=== PATIENT | female | born 2000 | race Caucasian/White ===

== ENCOUNTER 2020-06-29 10:50 | Inpatient (IN) | payer MEDICAID, SELFPAY ==
[2020-06-29] VITALS (58 sets, daily range): BP systolic 0–148; BP diastolic 0–102; PULSE 69–118; RESP 16–17; TEMP 36.3–37; O2SAT 54–100; BMI 24.5
[2020-06-29 10:35] LABS: Actim Prom Positive
[2020-06-29 12:15] LABS: Basophils % 0.4 %; Eosinophils % 0.4 %; Hematocrit 35.3 % (37.0-47.0); Hemoglobin 11.9 g/dL (11.5-15.3); Lymphocytes # 1.4 10^3/uL (0.8-4.8); Mean Corpuscular HGB Conc 33.7 g/dL (30.0-36.0); Mean Corpuscular Hemoglobin 32.1 pg (28.0-34.0); Mean Corpuscular Volume 95.1 fL (81-99); Mean Platelet Volume 10.3 fL (7.4-10.4); Monocytes # 0.4 10^3/uL (0.2-0.9); Monocytes % 4.4 %; Neutrophils # 6.61 10^3/uL (1.8-7.7); Neutrophils % 77.7 %; Nucleated Red Blood Cells % 0 %; Platelet Count 152 10^3/cmm (130-400); Red Blood Count 3.71 10^6/uL (4.1-5.3); Red Cell Distribution Width 13.2 % (12.1-15.1); White Blood Count 8.5 10^3/uL (4.0-10.0)
[2020-06-29] MEDS: miSOPROStol 100 mcg tablet 25 MCG VAGINAL (12:36)
[2020-06-29] MEDS: lactated ringers 1,000 ML 999 ML IV (20:06)
--- NOTE | 2020-06-29 20:45 | PC.NURSE ---
Margarita Pillai CLINICAL REHABILITATION AIDE notified by phone, pt. ready for epidural at this time.
--- NOTE | 2020-06-29 21:30 | ANES.PROC ---
Anesthesia Procedures Procedure/Date: 06/29/20 Epidural: Time Out Performed: Yes Consents Signed: Procedure Consent Consent: requested by attending/covering physician, from patient, risks and benefits reviewed and patient agrees to proceed Lumbar Level: L3-L4 Epidural position: sitting Epidural procedure: sterile prep of area, 1% lidocaine to numb the area, 18 g needle, negative for paresthesia passed, neg for paresthesia, test dose given, 1.5% xylocaine 1:200k epi, 0.2% Ropivacaine bolus ml, placed PCEA, no systemic response, sterile dressing applied and 0.2% Ropiavacaine @ mls/hr Additional Comments: [place] at 5cm. cath placed 2 cm into epid space. test dose 1.5% Lido with 1:200 K epi 3cc neg. Ropiv 0.2% 4 cc and fent 100 mcg bolus.
--- NOTE | 2020-06-29 21:35 | P.ANESASSM_ITS ---
Pre-Anesthetic Assessment Pre-Anesthetic Assessment: Height/Weight: Height 1.55 m Weight 58.967 kg Temp Pulse Resp BP Pulse Ox 98.6 F 75 16 133/70 98 06/29/20 21:29 06/29/20 21:32 06/29/20 13:53 06/29/20 21:32 06/29/20 21:32 Preop Diagnosis: Labor pain Proposed Procedure: BRAD Was Beta Susan taken within 24 hours: N/A Last Intake: 17:00 Social: Social History: No alcohol and No tobacco Exam: Pre-Anes Outpt Exam: alert, oriented x 3, clear to auscultation bilaterally and regular rate & rhythm Airway: Submandibular: WNL Cervical ROM: WNL MP: 2 Dentition: Full History/ROS: No significant history except as noted and No significant complaints Pulmonary: Pulmonary: None reported CV/HEM: CV/HEM: None reported : : None reported Hepatic: Hepatic: None reported GI: GI: None reported Metabolic: Metabolic: None reported Musc/skel: Musc/skel: None reported Neuropsych: Neuropsych: None reported Anesthetic Plan: ASA status: 2 Anesthesia: Regional (specify below) Risk of > 500 ml blood loss (7ml/kg in children): No Meds/Allergies Current Medications: Current Medications Generic Name Dose Route Start Last Admin Trade Name Freq PRN Reason Stop Dose Admin Lactated Ringer's 1,000 mls @ 999 m ls/hr 06/29/20 19:42 06/29/20 20:06 Lactated Ringers IV 999 mls/hr .Q1H1M PRN Administration See label comment s PFSH Anesthesia Female Reproductive History: : 2 Data Anesthesia CBC & Chem 7: 06/29/20 11:50 Other Labs: Laboratory Results - last 48 hr 06/29/20 06/29/20 10:15 11:50 WBC 8.5 RBC 3.71 L Hgb 11.9 Hct 35.3 L MCV 95.1 MCH 32.1 MCHC 33.7 RDW 13.2 Plt Count 152 MPV 10.3 Neut % (Auto) 77.7 Lymph % (Auto) 16.0 [place] % (Auto) 4.4 Eos % (Auto) 0.4 Baso % (Auto) 0.4 Neut # (Auto) 6.61 Lymph # (Auto) 1.4 [place] # (Auto) 0.4 Eos # (Auto) 0.0 Baso # (Auto) 0.0 Nucleated RBC % (auto) 0 Nucleated RBCs # 0.0 Insulin-like GF I Positive Cardiac Studies: No Data to Display
[2020-06-29] MEDS: dextrose 5%-lactated ringers 1,000 ML 125 ML IV (23:21)
[2020-06-30] VITALS (30 sets, daily range): BP systolic 0–166; BP diastolic 0–94; PULSE 67–105; RESP 16; TEMP 36.3–36.6; O2SAT 96–99
--- NOTE | 2020-06-30 02:11 | P.PCNOB_ITS ---
Delivery Note: Date of delivery: June 30, 2020 Pre-Delivery Course: The patient is a 2 para 1 at 39 weeks estimated gestational age who presented to my office yesterday complaining of possible rupture membranes. In the office she was found to be nitrazine positive. She went to the OB floor where she was found to be actim PROM positive. Cytotec x1 was placed per vagina. She progressed to complete without difficulty. An epidural was placed. Amniotomy was performed for the residual forebag. Her has been unremarkable to that point. Her GBS status is negative. Her Covid status is unknown. Her glucose screen was within normal limits. Her blood type is B+. The remainder of her labs were also within normal limits. She had consistent care. There are no concerns during her . Delivery: DELIVERY: The patient progressed to complete without difficulty. She delivered a male with a weight of 6 pounds 7 ounces with Apgars of 8, 8. The baby was delivered from the SISSY position. The baby's mouth and nose were suctioned at the site of the perineum. The baby was then completely delivered and placed on the mother's abdomen. The cord was then clamped and cut. There was a nuchal cord x2 which was easily reduced as the baby was delivered.. There was no meconium. The placenta and 3 vessel cord were delivered intact shortly thereafter. The perineum and vaginal vault were carefully examined. No lacerations were noted. Both the mother and the baby were in stable condition. There was 100 mL of blood loss Post-Delivery Status: Stable A&P Assessment and plan (1) 39 weeks gestation of : I anticipate routine care. If she continues to do well, she will build to be discharged home with the baby in about 24 hours. Status: Acute (2) Spontaneous rupture of membranes: Status: Acute Coding Level of Care Code Acute Granite Polisher for Chg Fwd Diagnoses 39 weeks gestation of Z3A.39 Spontaneous rupture of membranes
[2020-06-30] MEDS: lanolin oint 7 gm 1 APPLIC TOPICAL (04:44)
[2020-06-30] MEDS: benzocaine-menthol 78 gm Canister 1 SPRAY TOPICAL (04:44)
[2020-06-30] MEDS: HYDROcodone-acetaminophen 5-325 mg Tablet PO ×3 (04:44→21:31)
--- NOTE | 2020-06-30 08:55 | ANE.PACU2 ---
Inpatient post-anesthesia follow up: Airway intact: Yes Vital signs: Temperature 97.8 F Pulse Rate 89 Respiratory Rate 16 Blood Pressure 116/72 Pulse Oximetry 98 Oxygen Delivery Me thod Room Air Oxygen Flow Rate Fraction of Inspir ed Oxygen Hydration adequate: Yes Nausea and vomiting: No Pain level: 1 Mental status: Baseline Additional Comments: no Lower extremity numbness/weakness, up and walking, no signs of infection at neuraxial site, no headaches
[2020-06-30] MEDS: prenatal vitamin Capsule 1 CAP PO (09:09)
[2020-06-30] MEDS: docusate sodium 100 mg Capsule PO (09:09)
[2020-06-30] MEDS: ibuprofen 800 mg tablet PO ×3 (09:09→20:46)
--- NOTE | 2020-06-30 10:06 | PC.NURSE ---
Patient pressed called light and is noted to be on floor, holding baby, dry heaving, and stating she was cramping so badly she couldn't breathe. Baby was placed in crib and mom was helped back to bed. Fundal rubbed performed and patient is noted to have scant bleeding but be above umlbilicus and causing patient an extreme amount of pain. Patient screaming during fundal rub. Gentle SVE completed by Jeffrey Alejandra and felt clots in vagina but unable to express. Phone call placed to Dr. Owusu and he states to give patient 5mg morphine IV push now and he will be here in 15 minutes to assess patient.
[2020-06-30] MEDS: morphine 4 mg/mL SDV 1 mL 5 MG IVP (10:08)
[2020-06-30 10:41] LABS: Hematocrit 34.2 % (37.0-47.0); Hemoglobin 11.7 g/dL (11.5-15.3); Mean Corpuscular HGB Conc 34.2 g/dL (30.0-36.0); Mean Corpuscular Volume 93.4 fL (81-99); Mean Platelet Volume 9.7 fL (7.4-10.4); Platelet Count 142 10^3/cmm (130-400); Red Blood Count 3.66 10^6/uL (4.1-5.3); White Blood Count 12.1 10^3/uL (4.0-10.0)
[2020-07-01 04:51] VITALS: BP 109/69; PULSE 64; RESP 16; O2SAT 97
[2020-07-01] MEDS: HYDROcodone-acetaminophen 5-325 mg Tablet PO (05:51)
--- NOTE | 2020-07-01 07:19 | P.DS_ITS ---
Discharge Providers VOICE NETWORK ENGINEER Date of Admission: 06/29/20 10:50 Date of Discharge: 07/01/20 Attending Provider at Admission: Leonel Owusu MD Attending Provider at Discharge: Leonel Owusu MD Primary Care Provider: Leonel Owusu Diagnoses at Discharge Discharge Diagnosis (1) 39 weeks gestation of : Status: Acute (2) Spontaneous rupture of membranes: Status: Acute Reason for Visit Reason for Visit: VAGINAL DISCHARGE Hospital Course Hospital Course: The patient is a 20-year-old 2 female who presented to the hospital at 39 weeks estimated gestational age with spontaneous rupture membranes. For full details regarding hospital stay prior to her delivery please see delivery note. Her induction was unremarkable. She had an unremarkable delivery of a healthy-appearing male . Her course is overall been unremarkable as well. She is breast-fed well. Her bleeding has been minimal. Her pain has in general been well controlled. She did have 1 episode yesterday when she had severe pain that occurred while she was breast- feeding. Her uterus was noted be boggy at that time. She was given morphine, and her pain improved. She had no other episodes since that time. Information Peripartum Data: Infant Delivery Method: Vaginal Physical Exam Narrative: EXAM NARRATIVE: The patient is alert. She appears comfortable. Her heart has a regular rate and rhythm with no murmurs appreciated. Lungs are clear to auscultation bilaterally. Her fundus is firm and below the umbilicus. Urinary Catheter Management^: Bejarano: Cath Placed During This Visit: yes Urinary Catheter Date of Insertion: 06/29/20 Urinary Catheter Time of Insertion: 21:45 Discharge Data Data Completed and Pending: Pending at discharge Category Date Time Status PTC COVID [Gray virus Lab Test PTC ] Routine Lab 06/29/20 11:55 Received Labs from last 24 hours 06/30/20 10:20 WBC 12.1 H RBC 3.66 L Hgb 11.7 Hct 34.2 L MCV 93.4 MCH 32.0 MCHC 34.2 RDW 13.0 Plt Count 142 MPV 9.7 Vitals: Last Vital Signs Temp 97.4 F L 06/30/20 15:48 Pulse 64 07/01/20 04:51 Resp 16 07/01/20 04:51 BP 109/69 07/01/20 04:51 Pulse Ox 97 07/01/20 04:51 Discharge Plan Discharge Patient Disposition: Home Condition: Stable Prescriptions: New ibuprofen 800 mg Tablet 800 mg PO TID Qty: 45 RF: 0 hydrocodone-acetaminophen 5-325 mg Tablet 1 tab PO Q6H PRN (Reason: Moderate To Severe Pain) Qty: 10 RF: 0 Continued Vitamin 27 mg iron- 800 mcg Tablet 1 tab PO DAILY RF: 0 Discontinued ferrous sulfate [iron] 325 mg (65 mg iron) Tablet 325 mg PO DAILY RF: 0 Discharge Orders: Discharge Order (Routine); Ordered 07/01/20 Ordered By: Leonel Owusu Referrals: Leonel Owusu MD [Physician] - 6 Weeks Discharge Diet: Usual diet Discharge Activity: Limit activity as instructed Patient Instructions: Bleeding (DC), OB Discharge Report, OB Food/Drug Interaction Guide, OB Home Care, OB Proud Parent Packet, OB Vaginal Deliveries Discharge Attestations VOICE NETWORK ENGINEER Time Spent in Discharge Care*: less than 30 min Coding Level of Care Code Acute Ramp Service Agent for Chg Fwd Diagnoses 39 weeks gestation of Z3A.39 Spontaneous rupture of membranes
[2020-07-01] MEDS: prenatal vitamin Capsule 1 CAP PO (09:16)
[2020-07-01] MEDS: ibuprofen 800 mg tablet PO (09:16)
[2020-07-01] MEDS: docusate sodium 100 mg Capsule PO (09:17)
[2020-07-01 09:45] VITALS: BP 114/70; PULSE 80; RESP 16; TEMP 36.7; O2SAT 97
[2020-07-01 11:32] LABS: Coronavirus Lab Test PTC Negative
== END 2020-07-01 09:50 | disposition home or self-care (01) | DRG 807 ==
LOC: OPOB 12:12 → OBGYN 12:12
PROVIDERS: Admitting Provider Family Medicine; Family Provider Family Medicine; PCP Family Medicine; Visit Provider Family Medicine
DX: O42.02 Full-term premature rupture of membranes, onset of labor within 24 hours of rupture (principal); Z37.0 Single live birth; Z3A.39 39 weeks gestation of pregnancy; O69.81X0 Labor and delivery complicated by cord around neck, without compression, not applicable or unspecified
CPT/HCPCS: 12345; 36415; 51702; 59025; 59409; 83986; 84112; 85025; 85027; 87635; 96374; 96375; 98960; 99211; J2270; J2795; J3010

== ENCOUNTER 2022-02-17 09:54 | Outpatient (CLI) | payer MEDICAID, SELFPAY ==
--- NOTE | 2022-02-17 | US_ITS ---
WS: [id number] Exam: US transvaginal [id number] Date/Time of Exam: 02/17/2022 12:00 AM Reason For Exam: OVARIAN CYST The uterus and ovaries appear normal. The uterus measures 7.9 x 5.4 x 4.4 cm. The left ovary measures 2.15 x 2.3 x 1.6 cm. The right ovary measures 3.26 x 2.55 x 3.3 cm. No adnexal mass noted. Trace doretha unt of physiologic free fluid in the pelvis. Endometrial thickness is 3.3 mm. The uterus is bicornuat e. US/US transvaginal [id number] IMPRESSION: 1. Bicornuate uterus. Normal-appearing ovaries. 2. No adnexal mass or significant free fluid collection in the pelvis.
== END 2022-02-17 09:55 | disposition home or self-care (01) ==
LOC: RADOUTREAD 09:55
PROVIDERS: PCP Family Medicine; Visit Provider Family Medicine
DX: N83.209 Unspecified ovarian cyst, unspecified side (principal)
CPT/HCPCS: 76830

== ENCOUNTER 2023-10-06 17:21 | Outpatient (CLI) | payer MEDICAID, SELFPAY ==
[2023-10-06 17:50] VITALS: RESP 18; BMI 24.2
[2023-10-06] MEDS: lactated ringers 1,000 ML 999 ML IV (18:04)
[2023-10-06] MEDS: ondansetron 2 mg/ML SDV 2 mL 4 MG IVP (18:04)
--- NOTE | 2023-10-06 18:58 | PC.NURSE ---
pt reports feeling better at this time. pt up to bathroom
[2023-10-06 19:42] VITALS: BP 98/50; PULSE 92; RESP 16; TEMP 36.9
== END 2023-10-06 19:42 | disposition home or self-care (01) ==
LOC: OPOB 17:22 → OBGYN 19:31
PROVIDERS: PCP Family Medicine; Visit Provider Family Medicine
DX: O21.9 Vomiting of pregnancy, unspecified (principal); Z3A.00 Weeks of gestation of pregnancy not specified
CPT/HCPCS: 36415; 96374; 99211; J2405; J7120

== ENCOUNTER 2023-12-07 16:19 | Outpatient (CLI) | payer MEDICAID, SELFPAY ==
[2023-12-07 16:30] VITALS: BMI 26.7
[2023-12-07 16:31] VITALS: BP 113/64; PULSE 72
[2023-12-07 16:52] VITALS: BP 110/55; PULSE 72
== END 2023-12-07 17:05 | disposition home or self-care (01) ==
LOC: OPOB 16:25 → OBGYN 16:26
PROVIDERS: PCP Family Medicine; Visit Provider Family Medicine
DX: O26.899 Other specified pregnancy related conditions, unspecified trimester (principal); Z3A.00 Weeks of gestation of pregnancy not specified; R10.9 Unspecified abdominal pain
CPT/HCPCS: 59025; 99211

== ENCOUNTER 2024-02-11 02:03 | Inpatient (IN) | payer MEDICAID, SELFPAY ==
[2024-02-10] VITALS (46 sets, daily range): BP systolic 94–154; BP diastolic 52–82; PULSE 58–95; RESP 18; TEMP 36.2; O2SAT 90–99; BMI 27.3
[2024-02-10] MEDS: miSOPROStol 100 mcg tablet 25 MCG SUBLINGUAL ×2 (17:22→21:52)
[2024-02-10 17:37] LABS: Basophils % 0.4 %; Eosinophils % 0.5 %; Hematocrit 34.4 % (36-47); Lymphocytes # 1.6 10^3/uL (0.8-4.8); Lymphocytes % 19.4 %; Mean Corpuscular Hemoglobin 31.7 pg (27-33); Mean Corpuscular Volume 93.2 fl (85-98); Mean Platelet Volume 10.3 fL (7.4-10.4); Monocytes # 0.5 10^3/uL (0.2-0.9); Monocytes % 5.8 %; Neutrophils # 6.07 10^3/uL (1.8-7.7); Neutrophils % 73.2 %; Nucleated Red Blood Cells % 0 %; Platelet Count 127 10^3/cmm (157-399); Red Blood Count 3.69 10^6/uL (3.85-5.65); Red Cell Distribution Width 13.7 % (12.1-15.1); White Blood Count 8.29 10^3/uL (3.29-11.43)
[2024-02-10] MEDS: lactated ringers 1,000 ML 999 ML IV (19:34)
[2024-02-10] MEDS: dextrose 5%-lactated ringers 1,000 ML 125 ML IV (20:30)
--- NOTE | 2024-02-10 20:30 | P.ANESASSM_ITS ---
Pre-Anesthetic Assessment Height/Weight: Height 1.52 m Weight 63.503 kg Pulse Resp BP Pulse Ox O2 Del Method 67 18 113/63 99 Room Air 02/10/24 20:43 02/10/24 17:30 02/10/24 20:43 02/10/24 20:42 02/10/24 17:40 Preop Diagnosis: IUP labor epidural Familial anesthetic complications: none Was Beta Susan taken within 24 hours: N/A Was Clonidine taken within 24 hours: N/A Social No alcohol and No tobacco Exam alert and oriented x 3 Airway Submandibular: within normal limits Cervical ROM: within normal limits Mallampati: Class I Dentition: full History/ROS No significant complaints Metabolic Thyroid Disease Anesthetic Plan ASA status: 2 Anesthesia: Anesthesia Evaluation and Regional (specify below) Medications/Allergies Home Medications Medication Instructions Recorded Confirmed Last Taken Type vits no.124-ferrous fum 1 tab PO DAILY 06/29/20 02/10/24 02/10/24 08:00 History 27 mg iron-folic acid 800 mcg tablet ( Vitamin) citalopram 10 mg tablet 5 mg PO DAILY 12/07/23 02/10/24 02/10/24 08:00 History levothyroxine 125 mcg tablet 125 mcg PO DAILY 12/07/23 02/10/24 02/10/24 08:00 History Allergies Allergy/AdvReac Type Severity Reaction Status Date / Time No Known Allergies Allergy Verified 06/29/20 11:29 Current Medications Generic Name Dose Route Start Last Admin Trade Name Freq PRN Reason Stop Dose Admin Dextrose/Lactated Ringer's 1,000 mls @ 125 mls/hr 02/10/24 16:45 02/10/24 20:30 Dextrose 5%-Lactated Ringers IV 125 mls/hr .Q8H FILIBERTO Administration Lactated Ringer's 1,000 mls @ 999 mls/hr 02/10/24 19:12 02/10/24 19:34 Lactated Ringers IV 999 mls/hr .Q1H1M PRN Administration See label comments Ropivacaine 100 mg in 50 mls @ 10 mls/hr 02/10/24 19:15 02/10/24 20:42 Naropin Syringe EPIDURAL 10 mls/hr .Q5H FILIBERTO Administration Misoprostol 25 mcg 02/10/24 17:00 02/10/24 17:22 Misoprostol 100 Mcg Tablet SUBLINGUAL 02/11/24 01:01 25 mcg Q4H FILIBERTO Administration PFSH Anesthesia Female Reproductive History : 3 Data Anesthesia 02/10/24 17:25 Short CBC 02/10/24 Range/Units 17:25 WBC 8.29 (3.29-11.43) 10^3/uL Hgb 11.70 (11.27-16.99) g/dL Hct 34.4 L (36-47) % MCV 93.2 (85-98) fl Plt Count 127 L (157-399) 10^3/cmm Neut % (Auto) 73.2 % Neut # (Auto) 6.07 (1.8-7.7) 10^3/uL Blood Bank 02/10/24 17:25 Blood Type B Positive Rho(D) Type Rh positive Antibody Screen Negative Cardiac Studies: 2 No Data to Display
[2024-02-10] MEDS: ROPivacaine syringe 100 MG/50 ML SYRINGE 10 MG EPIDURAL (20:42)
--- NOTE | 2024-02-10 20:46 | ANES.PROC ---
Anesthesia Procedures Procedure/Date: 02/10/24 Epidural: Time Out Performed: Yes Consents Signed: Procedure Consent Consent: from patient, risks and benefits reviewed and patient agrees to proceed Lumbar Level: L3-L4 Epidural position: sitting Epidural procedure: sterile prep of area, 1% lidocaine to numb the area, 18 g needle, negative for paresthesia passed, neg for paresthesia, 1.5% xylocaine 1:200k epi, placed PCEA, no systemic response, sterile dressing applied, L.U.D. no apparent complications and 0.2% Ropiavacaine @ mls/hr (10) Additional Comments: [place] at 4. negative aspiration. taped at 10 at skin.
[2024-02-11] VITALS (70 sets, daily range): BP systolic 90–140; BP diastolic 50–93; PULSE 56–112; RESP 16–18; TEMP 36.3–38; O2SAT 97
[2024-02-11] MEDS: ROPivacaine syringe 100 MG/50 ML SYRINGE 10 MG EPIDURAL ×4 (00:56→11:48)
[2024-02-11] MEDS: oxytocin 30 UNIT/500 ML BAG IV (02:32)
[2024-02-11] MEDS: dextrose 5%-lactated ringers 1,000 ML 122 ML IV (04:20)
--- NOTE | 2024-02-11 09:11 | PM.OPHPUD ---
Labor & Delivery H&P Update Date of Procedure: February 11, 2024 Date H&P Performed: 02/09/24 Changes to previous documentation: Spontaneous rupture membranes Admission Diagnosis: 23-year-old 3 para 2-0-0-2 at 38 weeks estimated gestational age presenting with spontaneous rupture membranes Preop diagnosis: IUP Other information: The patient is a otherwise healthy 23-year-old woman who presents with possible leaking fluid. On admission to the hospital she is noted to have nitrazine positive close for rupture membranes. And was mildly hypothyroid earlier in her until her doses were adjusted. Her blood type is B+. Her antibody screen is negative. She is GBS negative. She passed her glucose screen. The remainder of her infectious disease profile is within normal limits. Related Problem List Diagnoses (1) 38 weeks gestation of : (2) Spontaneous rupture of membranes: A&P Assessment and plan (1) 38 weeks gestation of : I anticipate routine labor and vaginal delivery. Status: Acute (2) Spontaneous rupture of membranes: Status: Acute
[2024-02-11] MEDS: ondansetron 2 mg/ML SDV 2 mL 4 MG IVP (09:14)
[2024-02-11] MEDS: metoclopramide 5 mg/mL SDV 2 mL 10 MG IV (12:23)
[2024-02-11] MEDS: acetaminophen 325 mg Tablet 650 MG PO (13:00)
--- NOTE | 2024-02-11 14:43 | PM.DELIVERY ---
Delivery Note: Date of delivery: February 11, 2024 Pre-delivery diagnoses: 23-year-old 3 para 2-0-0-2 at 38 weeks estimated gestational age Post-delivery diagnoses: Status post spontaneous vaginal delivery Procedure: Spontaneous vaginal delivery Delivering Physician: Leonel Owusu Estimated blood loss (mL): 100 Delivery: DELIVERY: The patient progressed to complete without difficulty. She delivered a male with a weight of 7 pounds 8 ounces with Apgars of 8, 9. The baby was delivered from the SISSY position and placed on the mother's abdomen. The cord was then clamped and cut. There was a body cord x 1. There was no meconium. The placenta and 3 vessel cord were delivered intact shortly thereafter. The perineum and vaginal vault were carefully examined. No lacerations were noted. Both the mother and the baby were in stable condition. Post-Delivery Status: Good A&P Assessment and plan (1) Spontaneous vaginal delivery: I anticipate routine care (2) 38 weeks gestation of : Coding Level of Care Code Acute Code for Chg Fwd Diagnoses Spontaneous vaginal delivery O80 38 weeks gestation of Z3A.38
[2024-02-11] MEDS: ibuprofen 800 mg tablet PO ×2 (16:19→20:17)
[2024-02-11] MEDS: docusate sodium 100 mg Capsule PO (17:48)
[2024-02-11] MEDS: HYDROcodone-acetaminophen 5-325 mg Tablet PO (17:48)
[2024-02-11] MEDS: lanolin oint 7 gm 1 APPLIC TOPICAL (20:17)
[2024-02-12] MEDS: HYDROcodone-acetaminophen 5-325 mg Tablet PO ×2 (00:10→11:25)
[2024-02-12 03:08] LABS: Hematocrit 31.8 % (36-47); Mean Corpuscular HGB Conc 32.7 g/dL (30-55); Mean Corpuscular Hemoglobin 31.4 pg (27-33); Mean Corpuscular Volume 96.1 fl (85-98); Mean Platelet Volume 10.1 fL (7.4-10.4); Platelet Count 99 10^3/cmm (157-399); Red Blood Count 3.31 10^6/uL (3.85-5.65); Red Cell Distribution Width 13.7 % (12.1-15.1); White Blood Count 13.48 10^3/uL (3.29-11.43)
[2024-02-12 04:00] VITALS: BP 112/69; PULSE 65; RESP 18; TEMP 36.5; O2SAT 98
[2024-02-12] MEDS: levothyroxine 125 mcg Tablet PO (06:00)
--- NOTE | 2024-02-12 06:58 | P.DS_ITS ---
Discharge Providers ASSEMBLY RIVETER Date of Admission: 02/11/24 02:03 Date of Discharge: 02/12/24 Attending Provider at Admission: Leonel Owusu MD Attending Provider at Discharge: Leonel Owusu MD Primary Care Provider: Leonel Owusu MD Diagnoses at Discharge Discharge Diagnosis (1) Spontaneous vaginal delivery: Status: Acute (2) 38 weeks gestation of : Status: Acute Reason for Visit Reason for Visit: Poss ROM, ctx Hospital Course Hospital Course The patient presented to the hospital with spontaneous rupture of membranes. Her labor was augmented with Cytotec and Pitocin. She was noted to have a forebag, and an amniotomy was performed. She did have a low-grade fever just prior to delivering the baby. She progressed to complete and had an unremarkable delivery of a healthy appearing male infant. She had no tears. Her bleeding was within normal limits. Her pain was well-controlled. She breast-fed well. Information Peripartum Data: Infant Delivery Method: Vaginal Physical Exam Narrative: The patient is alert. She appears comfortable. Her heart has a regular rate and rhythm with no murmurs appreciated. Lungs are clear to auscultation bilaterally. Her fundus is firm and below the umbilicus. Urinary Catheter Management: Bejarano Latex: Cath Placed During This Visit: yes, but has since been removed by the nurse Reason for Continuing Indwelling Catheter: Decision to DC Catheter Urinary Catheter Date of Insertion: 02/10/24 Urinary Catheter Time of Insertion: 21:30 Date Urinary Catheter Removed: 02/11/24 Time Urinary Catheter Discontinued: 14:10 Discharge Data Studies Completed and Pending Laboratory Results WBC 13.48 10^3/uL (3.29-11.43) H 02/12/24 02:50 RBC 3.31 10^6/uL (3.85-5.65) L 02/12/24 02:50 Hgb 10.40 g/dL (11.27-16.99) L 02/12/24 02:50 Hct 31.8 % (36-47) L 02/12/24 02:50 MCV 96.1 fl (85-98) 02/12/24 02:50 MCH 31.4 pg (27-33) 02/12/24 02:50 MCHC 32.7 g/dL (30-55) 02/12/24 02:50 RDW 13.7 % (12.1-15.1) 02/12/24 02:50 Plt Count 99 10^3/cmm (157-399) L 02/12/24 02:50 MPV 10.1 fL (7.4-10.4) 02/12/24 02:50 Neut % (Auto) 73.2 % 02/10/24 17:25 Lymph % (Auto) 19.4 % 02/10/24 17:25 [place] % (Auto) 5.8 % 02/10/24 17:25 Eos % (Auto) 0.5 % 02/10/24 17:25 Baso % (Auto) 0.4 % 02/10/24 17:25 Neut # (Auto) 6.07 10^3/uL (1.8-7.7) 02/10/24 17:25 Lymph # (Auto) 1.6 10^3/uL (0.8-4.8) 02/10/24 17:25 [place] # (Auto) 0.5 10^3/uL (0.2-0.9) 02/10/24 17:25 Eos # (Auto) 0.0 10^3/uL (0.0-0.8) 02/10/24 17:25 Baso # (Auto) 0.0 10^3/uL (0.0-0.1) 02/10/24 17:25 Nucleated RBC % (auto) 0 % 02/10/24 17:25 Nucleated RBCs # 0.0 /100WBC 02/10/24 17:25 Blood Type B Positive 02/10/24 17:25 Rho(D) Type Rh positive 02/10/24 17:25 Antibody Screen Negative 02/10/24 17:25 Vitals Last Vital Signs Temp 97.7 F 02/12/24 04:00 Pulse 65 02/12/24 04:00 Resp 18 02/12/24 04:00 BP 112/69 02/12/24 04:00 Pulse Ox 98 02/12/24 04:00 O2 Del Method Room Air 02/12/24 04:00 Results Labs OB ([facility]): Blood Type B Positive 02/10/24 Antibody Screen Negative 02/10/24 Hct 31.8 % (36-47) L 02/12/24 Hgb 10.40 g/dL (11.27-16.99) L 02/12/24 Rho(D) Type Rh positive 02/10/24 Plt Count 99 10^3/cmm (157-399) L 02/12/24 Discharge Plan Discharge Patient Disposition: Home Condition: Stable Prescriptions: New ibuprofen 800 mg Tablet 800 mg PO TID Qty: 45 0RF escitalopram oxalate 10 mg Tablet 5 mg PO DAILY Qty: 90 1RF Continued Vitamin 27 mg iron- 800 mcg Tablet 1 tab PO DAILY levothyroxine 125 mcg Tablet 125 mcg PO DAILY Discontinued citalopram 10 mg Tablet 5 mg PO DAILY Discharge Orders: Discharge Order (Routine); Ordered 02/12/24 Ordered By: Leonel Owusu Referrals: Leonel Owusu MD [Primary Care Provider] - 6 Weeks Discharge Diet: Usual diet Discharge Activity: Limit activity as instructed Patient Instructions: Opioid Safety Discharge Attestations ASSEMBLY RIVETER Time Spent in Discharge Care*: less than 30 min Coding Level of Care Code Acute Code for Chg Fwd Diagnoses Spontaneous vaginal delivery O80 38 weeks gestation of Z3A.38
[2024-02-12] MEDS: PRENATAL VIT NO.130/IRON/FOLIC 1 EACH TABLET PO (08:06)
[2024-02-12] MEDS: docusate sodium 100 mg Capsule PO (08:06)
[2024-02-12] MEDS: ibuprofen 800 mg tablet PO ×2 (08:06→15:37)
[2024-02-12 10:00] VITALS: BP 108/68; PULSE 65; RESP 16; TEMP 36.7
[2024-02-12] MEDS: escitalopram 10 mg Tablet 5 MG PO (11:25)
--- NOTE | 2024-02-12 13:59 | ANE.PACU2 ---
Inpatient post-anesthesia follow up: Airway intact: Yes Vital signs: Temperature 98.0 F Pulse Rate 65 Respiratory Rate 16 Blood Pressure 108/68 Pulse Oximetry 98 Oxygen Delivery Me thod Room Air Oxygen Flow Rate Fraction of Inspir ed Oxygen Hydration adequate: Yes Nausea and vomiting: No Pain level: 1 Mental status: Baseline Epidural Start/End: Epidural Start Date: 02/10/24 Epidural Start Time: 20:28 Epidural End Date: 02/11/24 Epidural End Time: 16:25
[2024-02-12 16:05] VITALS: BP 108/68; PULSE 65; RESP 16; TEMP 36.7
== END 2024-02-12 16:06 | disposition home or self-care (01) | DRG 806 ==
LOC: OPOB 02:05 → OBGYN 02:05
PROVIDERS: Admitting Provider Family Medicine; PCP Family Medicine; Visit Provider Family Medicine
DX: O99.284 Endocrine, nutritional and metabolic diseases complicating childbirth (principal); O75.2 Pyrexia during labor, not elsewhere classified; Z37.0 Single live birth; O69.2XX0 Labor and delivery complicated by other cord entanglement, with compression, not applicable or unspecified; Z3A.38 38 weeks gestation of pregnancy; E03.9 Hypothyroidism, unspecified
CPT/HCPCS: 36415; 51702; 59025; 59409; 83986; 85025; 85027; 86850; 86900; 96374; 99211; J2405; J2590; J2765; J2795; J7120; J7121